=== PATIENT | female | born 1960 | race Caucasian/White ===

== ENCOUNTER 2022-10-21 06:25 | Day surgery (SDC) | payer OTHER ==
[~2022-10-21] VITALS: Ht 162.6 cm; Wt 122.7 kg
[~2022-10-21 06:25] MED LIST: COLCHICINE0.6 M1 PO; FISH OIL 1,001000 MG PO; FLUOXETINE HCL20 MG PO; LEVOTHYROXINE100 MC2 PO; TYLENOL325 MG PO; VALSARTAN160 MG PO; VITAMIN D325 MC3 PO
[2022-10-21] MEDS ORDERED: ALLOPURINOL100 MG PO (06:52)
--- NOTE | 2022-10-22 12:35 | OR ---
[facility] [address], [place] [address] Signed DATE OF OPERATION: 10/21/2022 SURGEON: Carey Russell MD PREOPERATIVE DIAGNOSIS: Colon screening. POSTOPERATIVE DIAGNOSIS: 1. Polyps x3. 2. Diverticular changes, sigmoid. PROCEDURE: Total colonoscopy to cecum with cold snare polypectomy x2 and cold morcellation polypectomy x1. ANESTHESIA: Intravenous sedation fentanyl, 100 mcg and Versed 6 mg. INDICATIONS: This 62-year-old white woman is a patient of Karo Flores PA-C. She last underwent colonoscopy greater than 10 years ago. She has no current symptoms of bleeding, diarrhea, or constipation and no family history of colon cancer. She is admitted for screening colonoscopy. She understands the risks of bleeding, infection, and perforation. FINDINGS: The prep was excellent. Complete colonoscopy was undertaken to the cecum. There were two polyps in the cecum and one in the sigmoid, all excised completely. Additionally, there were diverticular changes of the sigmoid, but it was not extensive. DESCRIPTION OF PROCEDURE: The patient was brought to the endoscopy suite and placed in lateral decubitus position given intravenous sedation to the point of slurred speech and nystagmus. Digital rectal examination was normal. An Olympus video colonoscope was passed into the rectum and manipulated throughout the colon noting diverticular change of the sigmoid and left colon. The scope was ultimately passed to the cecum. The ileocecal valve and appendiceal orifice appeared normal. There were two polyps in the cecum, one excised with cold snare technique and another with cold morcellation technique. There was hypertrophy of the mucosa of the Electronically Signed By: CAREY RUSSELL MD 10/22/22 1235 PATIENT NAME: JANICE AGUSTIN OPERATIVE REPORT DATE OF : 64 REPORT #: [id number] PHYSICIAN: CAREY RUSSELL MD PCP: KARO FLORES PA-C REPORT IS CONFIDENTIAL AND NOT TO BE RELEASED WITHOUT AUTHORIZATION [facility] [address] [place] [id number] Signed ileum, entry into the ileum was only partially possible, but biopsies were taken of the hypertrophied area. The scope was then withdrawn, examination throughout showed no sign of abnormality into the sigmoid, where a small polyp was noted, this was excised with cold snare technique and additional cold morcellation biopsy technique. The scope was further withdrawn. The rectum appeared normal. No other findings of concern. The patient was taken to the recovery room in good condition. CONCLUDING DIAGNOSIS: Polyps x3 and diverticulosis. PLAN: Recommend repeat colonoscopy in three years or sooner if clinically indicated. We will review her pathology report to be sure there was no serrated histology of the polyp in the right colon. MD MACY Langford/EDWARDO /[id number] cc: Karo Flores PA-C Copies: KARO FLORES PA-C ~ Electronically Signed By: CAREY RUSSELL MD 10/22/22 1235 PATIENT NAME: JANICE AGUSTIN OPERATIVE REPORT DATE OF : 64 REPORT #: [id number] PHYSICIAN: CAREY RUSSELL MD PCP: KARO FLORES PA-C REPORT IS CONFIDENTIAL AND NOT TO BE RELEASED WITHOUT AUTHORIZATION
--- NOTE | 2022-10-23 15:28 | PATH ---
[facility] [address], [place] [address] Signed SPECIMEN(S): A CECAL POLYPS SPECIMEN(S): B ILEOCECAL VALVE BIOPSY SPECIMEN(S): C SIGMOID POLYP SPECIMEN SOURCE: A. CECAL POLYPS B. ILEOCECAL VALVE BIOPSY C. SIGMOID POLYP CLINICAL HISTORY: Screening colonoscopy. Postop Dx: Diverticula, polyps x 3. FINAL PATHOLOGIC DIAGNOSIS: A. Cecal polyps: - Serrated polyp/adenoma (multiple fragments). B. Ileocecal valve biopsy: - Benign small-bowel mucosa, negative for dysplasia or malignancy. C. Sigmoid polyp: - Hyperplastic polyp (four fragments). JVR:[facility]:C2NR MICROSCOPIC EXAMINATION: Histologic sections of all submitted blocks are examined by light microscopy. These findings, together with the gross examination, support the pathologic diagnosis. GROSS DESCRIPTION: Three specimens are received in three containers, labeled "JS." A. The specimen, labeled "JS, cecum colon polyp," is received in formalin and consists of multiple barrera soft tissue fragments that measure 0.1-0.2 cm in greatest dimension. The specimen is entirely submitted in cassette (A1). B. The specimen, labeled "JS, ileocecal valve biopsies," is received in formalin and consists of two barrera soft tissue fragments that measure 0.2-0.3 cm in greatest dimension. The specimen is entirely submitted in cassette (B1). C. The specimen, labeled "JS, sigmoid colon polyp," is received in formalin and consists of four barrera soft tissue fragments that measure 0.1-0.2 cm in greatest dimension. The specimen is entirely submitted in cassette (C1). VB (under the direct supervision of a pathologist) PATIENT NAME: JANICE AGUSTIN PATHOLOGY DATE OF : 64 REPORT #: [id number] PHYSICIAN: DARIA RENNER PCP: PABLO HUNTER PA-C REPORT IS CONFIDENTIAL AND NOT TO BE RELEASED WITHOUT AUTHORIZATION [facility] [address], [place] [address] Signed The Gross Description was prepared using a voice recognition system. The report was reviewed for accuracy; however, sound-alike word errors, addition and/or deletions may occur. If there is any question about this report, please contact Client Services. PERFORMING LABORATORY: The technical component was performed by [facility], [address] [place] [address] (CLIA# [id number]). The professional interpretation was performed by [facility], [facility], [facility] [address] [address] (CLIA#: [id number]). Diagnostician: Bruno Dunaway MD Pathologist Electronically Signed 10/23/2022 Copies: ~ PATIENT NAME: JANICE AGUSTIN PATHOLOGY DATE OF : 64 REPORT #: [id number] PHYSICIAN: DARIA PATHOLOGY PCP: PABLO HUNTER PA-C REPORT IS CONFIDENTIAL AND NOT TO BE RELEASED WITHOUT AUTHORIZATION
== END 2022-10-21 09:00 | disposition home or self-care (01) ==
LOC: OPS 06:25 → DS 06:25 → OPS 07:30
PROVIDERS: ATTEND Surgery
PROC: 0DBN8ZZ Excision of Sigmoid Colon, Via Natural or Artificial Opening Endoscopic (ICD-10-PCS; 2022-10-21)
PROC: 0DBH8ZZ Excision of Cecum, Via Natural or Artificial Opening Endoscopic (ICD-10-PCS; principal; 2022-10-21 07:30)
DX: Z12.11 Encounter for screening for malignant neoplasm of colon (principal); E04.1 Nontoxic single thyroid nodule; Z80.8 Family history of malignant neoplasm of other organs or systems; E66.01 Morbid (severe) obesity due to excess calories; Z68.42 Body mass index [BMI] 45.0-49.9, adult; K57.30 Diverticulosis of large intestine without perforation or abscess without bleeding; D12.0 Benign neoplasm of cecum
CPT/HCPCS: 99153; G0500; J2250; J3010; J7121

== ENCOUNTER 2023-11-12 05:52 | Day surgery (SDC) | payer OTHER ==
[2023-11-05 15:04] VITALS: BP 159/88
[~2023-11-12] VITALS: Ht 162.6 cm; Wt 125.0 kg
--- NOTE | ~2023-11-12 | OR ---
[facility] [address] [place], [place] [address] Draft DATE OF OPERATION: 11/12/2023 SURGEON: Grace Santos MD PREOPERATIVE DIAGNOSIS: Postmenopausal bleeding. POSTOPERATIVE DIAGNOSIS: Postmenopausal bleeding, cervical stenosis. PROCEDURE: Hysteroscopy, dilation and curettage. ANESTHESIA: MAC. ESTIMATED BLOOD LOSS: Minimal. DRAINS: None. INDICATIONS AND FINDINGS: The patient is a 63-year-old female who has been having abnormal bleeding recently. Ultrasound did show a thickened endometrium. She has undergone prior cone as well as LEEP and her cervix was quite stenotic as well as being almost flush with the vagina. DESCRIPTION OF PROCEDURE: The cervix was grasped with a single-tooth tenaculum and the uterus was sounded with ease to a 7 cm. The endocervical canal was then dilated to a #8 dilator. The MyoSure device was then placed and the cavity evaluated. It appeared pretty atrophic. There were some wispy areas within the cavity. These were removed using the MyoSure Lite. Following this, the MyoSure device was removed and a sharp curettage was done with a small amount of tissue found. Following this, procedure was terminated. The instruments removed and there was no evidence of any ongoing bleeding. All sponge and needle counts were correct. She tolerated the procedure well and was taken to recovery room in good condition. PATIENT NAME: JANICE AGUSTIN OPERATIVE REPORT DATE OF : 64 REPORT #: [id number] PHYSICIAN: GRACE SANTOS MD PCP: PABLO HUNTER PA-C REPORT IS CONFIDENTIAL AND NOT TO BE RELEASED WITHOUT AUTHORIZATION [address] [place], [place] [address] Draft MD GRETCHEN Richard/EDWARDO /[id number] Copies: ~ PATIENT NAME: JANICE AGUSTIN OPERATIVE REPORT DATE OF : 64 REPORT #: [id number] PHYSICIAN: GRACE SANTOS MD PCP: PABLO HUNTER PA-C REPORT IS CONFIDENTIAL AND NOT TO BE RELEASED WITHOUT AUTHORIZATION
[~2023-11-12 05:52] MED LIST changes: +ALLOPURINOL100 MG PO; +CALCIUM500 MG PO
[2023-11-12 06:09] VITALS: BP 147/85
--- NOTE | 2023-11-12 08:04 | NUR ---
11/12/23 0804 Viky Rivero 0752-PT TO PACU IN SF POSITION. EYES CLOSED. DOES NOT RESPOND TO VERBAL OR TACTILE STIMULI. BREATHING EASY AND UNLABORED WITH ORAL AIRWAY IN PLACE. SPO2 >95% ON 6 LO2 VIA SIMPLE MASK. 0755- PT GRIMMACING WITH BP CUFF INFLATION. PT MOVING UPPER EXTREMITIES BUT DOES NOT FOLLOW COMMANDS. PT PUSHES OUT ORAL AIRWAY WITH TONGUE. PT ENCOURAGED TO TAKE DEEP BREATHS. RETURN DEMONSTRATIO OBSERVED. 0802- MD AT BEDSIDE TALKING WITH PATIENT. PT OPENS EYES AND ANSWERS "OKAY" TO QUESTIONS. PT STATES "NO" WHEN ASKED ABOUT NAUSEA OR PAIN. BREATHING EASY AND UNLABORED. SPO2 >95. O2 TITRATED DOWN TO ROOM AIR.
[2023-11-12 08:19] VITALS: BP 155/75
--- NOTE | 2023-11-12 08:23 | NUR ---
LE 0820: PT IS BACK TO DS FROM PACU. SHE IS AROUSABLE. SHE REPORTS MINIMAL PAIN. CALL LIGHT WITHIN REACH. WATER ON BEDSIDE TABLE. DC CRITERIA IS REVIEWED WITH PT, SHE VERBALIZES UNDERSTANDING.
--- NOTE | 2023-11-12 09:01 | NUR ---
LE 0850: PT TURNS ENTRY LEVEL ELECTRICIAN LIGHT. SHE ASKS TO HAVE THE HEAD OF HER BED ELEVATED. SHE ALSO INDICATES THAT SHE NEEDS TO USE THE RESTROOM. SHE IS HELPED UP OOB, WITH STANDBY ASSIST. SHE IS ABLE TO AMBULATE INDEPENDENTLY TO THE BATHROOM. LE 0855: SHE IS ABLE TO VOID 150MLS OF BLOOD TINGED URINE. SHE AMBULATES BACK TO HER BED. SHE REQUESTS A CHOCOLATE PUDDING. SHE ASKS ABOUT DR. FARR COMING BACK DOWN TO TALK WITH HER. THIS RN CALLS DR. FARR'S OFFICE AND IS TOLD THAT DR. FARR WILL BE COMING BACK DOWN SHORTLY.
[2023-11-12 09:24] VITALS: BP 155/75
--- NOTE | 2023-11-12 09:57 | NUR ---
LE 0920: PT IS IN BED, BUT DRESSED. SHE INDICATES THAT SHE WOULD LIKE TO GO HOME. LE 0930: PT IS GIVEN VERBAL AND WRITTEN DC INSTRUCTIONS. NO QUESTIONS AT THIS TIME. SHE IS TAKEN TO PERSONAL VEHICLE VIA WC. WHERE SHE TRANSFERS HERSELF WITHOUT ISSUES.
--- NOTE | 2023-11-14 12:21 | PATH ---
[facility] [address] [facility] [place], [place] [address] Signed SPECIMEN(S): A ENDOMETRIAL CURETTINGS SPECIMEN SOURCE: A. ENDOMETRIAL CURETTINGS CLINICAL HISTORY: Postmenopausal bleeding FINAL PATHOLOGIC DIAGNOSIS: Endometrial curettings: - Reactive ectocervical mucosa and blood clot. - Small fragment of benign lower uterine segment glandular epithelium. - See comment. COMMENT: There is insufficient endometrium for evaluation, clinical correlation is requested and appropriate follow-up is recommended. JVR:[facility] MICROSCOPIC EXAMINATION: Histologic sections of all submitted blocks are examined by light microscopy. These findings, together with the gross examination, support the pathologic diagnosis. GROSS DESCRIPTION: The specimen, labeled and designated "KayleyLillian, [facility]," is received in formalin and consists of multiple barrera-brown fragments of soft tissue measuring 2.0 x 1.8 x 0.8 cm in aggregate, all specimens are submitted entirely in (A1). MMA (under the direct supervision of a pathologist) The Gross Description was prepared using a voice recognition system. The report was reviewed for accuracy; however, sound-alike word errors, addition and/or deletions may occur. If there is any question about this report, please contact Client Services. PERFORMING LABORATORY: Technical component was performed by [facility], [address] [place] [id number] (CLIA# [id number]). Professional interpretation was performed by [facility], [address] [place] [address], [place] [address] (CLIA#: [id number]). PATIENT NAME: JANICE AGUSTIN PATHOLOGY DATE OF : 64 REPORT #: [id number] PHYSICIAN: DARIA RENNER PCP: PABLO HUNTER PA-C REPORT IS CONFIDENTIAL AND NOT TO BE RELEASED WITHOUT AUTHORIZATION [address] [place] [address] Signed Diagnostician: Bruno Dunaway MD Pathologist Electronically Signed 11/14/2023 Copies: ~ PATIENT NAME: JANICE AGUSTIN PATHOLOGY DATE OF : 64 REPORT #: [id number] PHYSICIAN: DARIA RENNER PCP: PABLO HUNTER PA-C REPORT IS CONFIDENTIAL AND NOT TO BE RELEASED WITHOUT AUTHORIZATION
== END 2023-11-12 09:35 | disposition home or self-care (01) ==
LOC: OPS 05:52 → DS 05:52 → OPS 07:30 → DS 09:30 → OPS 09:35
PROVIDERS: ATTEND Obstetrics & Gynecology
PROC: 0UDB8ZZ Extraction of Endometrium, Via Natural or Artificial Opening Endoscopic (ICD-10-PCS; principal; 2023-11-12 07:30)
DX: N95.0 Postmenopausal bleeding (principal); E03.9 Hypothyroidism, unspecified; F32.9 Major depressive disorder, single episode, unspecified; I12.9 Hypertensive chronic kidney disease with stage 1 through stage 4 chronic kidney disease, or unspecified chronic kidney disease; N18.32 Chronic kidney disease, stage 3b; R73.03 Prediabetes; Z79.899 Other long term (current) drug therapy
CPT/HCPCS: 00952; J1885; J2001; J2250; J2405; J2704; J3490; J7121